=== PATIENT | female | born 1965 | race Caucasian/White ===

== ENCOUNTER → 2019-12-12 15:42 | Outpatient (BNVA) | payer OTHER, SELFPAY | PROVIDERS: PCP Internal Medicine; Visit Provider Obstetrics & Gynecology | DX: D21.9 Benign neoplasm of connective and other soft tissue, unspecified (principal) | CPT/HCPCS: 99213; Q3014 ==

== ENCOUNTER 2019-12-20 09:19 | Outpatient (REF) | payer OTHER, SELFPAY ==
--- NOTE | 2019-12-20 | US_ITS ---
EXAMINATION: US COMPLETE ABDOMEN WITH LIVER ELASTOGRAPHY CLINICAL INFORMATION: Right upper quadrant pain. COMPARISON: None. TECHNIQUE: Real-time imaging of the abdominal viscera. Noninvasive ultrasound liver fibrosis assessment is performed using Denisa ElastPQ point quantification shear wave elastography (pSWE) with a 5 MHz transducer. Multiple elastography samples are obtained. FINDINGS: PANCREAS: The pancreas is normal size and shape. There are coarse echotexture throughout the pancreas. The tail is suboptimally visualized. ABDOMINAL AORTA: The proximal, middle, and distal aortic segments are normal in caliber. INFERIOR VENA CAVA: Visualized portions are normal. LIVER: The liver demonstrates normal size, contour and increased echogenicity. No focal lesion or intrahepatic biliary duct dilatation. The right lobe measures 17.9 cm in length. The left lobe measures 13.7 cm in length. There is normal hepatopedal flow seen in the portal vein on Doppler exam. Shear wave elastography provides a median stiffness of 1.15 m/s (reference: normal median stiffness is 0.81 - 1.22 m/s). The IQR/median stiffness to assess sampling precision is 0.22 (reference: optimal IQR/median stiffness is under 0.3). GALLBLADDER: The gallbladder is physiologically distended without evidence of sludge, polyps, wall thickening or pericholecystic fluid. There are small echogenic stones visualized without wall thickening. The gallbladder wall measures 0.3 cm. COMMON BILE DUCT: Normal in caliber measuring 0.6 cm in diameter. RIGHT KIDNEY: Normal. No hydronephrosis. No renal calculi or focal parenchymal lesions. The kidney measures 11.8 cm in maximum dimension. LEFT KIDNEY: Normal. No hydronephrosis. No renal calculi or focal parenchymal lesions. The kidney measures 11.6 cm in maximum dimension. SPLEEN: Normal. The spleen measures 10.8 cm in maximum dimension. FREE FLUID: None. US/US abdomen comp w elastography IMPRESSION: 1. Hepatic steatosis without focal lesion. 2. Gallstones without wall thickening. 3. Elastography: Liver elastography measurements are within normal (METAVIR Stage F0).
== END 2019-12-20 09:20 | disposition home or self-care (01) ==
LOC: HO.US 09:19
PROVIDERS: Visit Provider Physician Assistant
DX: R10.11 Right upper quadrant pain (principal)
CPT/HCPCS: 76705; 76981

== ENCOUNTER → 2020-01-03 16:11 | Outpatient (BNVA) | payer OTHER, SELFPAY | PROVIDERS: Visit Provider Physician Assistant | DX: K59.09 Other constipation (principal) | CPT/HCPCS: 99212; Q3014 ==

== ENCOUNTER 2020-06-17 14:02 | Outpatient (REF) | payer OTHER, SELFPAY ==
--- NOTE | ~2020-06-17 | US_ITS ---
EXAMINATION: US PELVIS COMPLETE US PELVIS TRANSVAGINAL CLINICAL INFORMATION: Fibroids. COMPARISON: None TECHNIQUE: Transabdominal and transvaginal imaging was performed. FINDINGS: The uterus is of normal size and echogenicity measuring 5.9 x 3.8 x 3.3 cm for a volume of 38.7 mL. Ovoid, heterogeneous myometrial foci, likely representing fibroids. These measure 1.3 cm in the fundus and 1.1 cm within the posterior body. The endometrium is not clearly seen. Nabothian cysts and calcifications noted within the cervix. Both ovaries are of normal size and echogenicity. The right measures 2 x 1.4 x 2 cm for a volume of 2.9 mL. The left measures 1.4 x 0.9 x 1.7 cm for a volume of 1.1 mL. There is no pelvic free fluid. US/US pelvic complete IMPRESSION: 1. Uterine fibroids measuring approximately 1.3 and 1.1 cm. Endometrium not clearly seen. 2. Sonographically unremarkable right and left ovary.
--- NOTE | ~2020-06-17 | US_ITS ---
EXAMINATION: US PELVIS COMPLETE US PELVIS TRANSVAGINAL CLINICAL INFORMATION: Fibroids. COMPARISON: None TECHNIQUE: Transabdominal and transvaginal imaging was performed. FINDINGS: The uterus is of normal size and echogenicity measuring 5.9 x 3.8 x 3.3 cm for a volume of 38.7 mL. Ovoid, heterogeneous myometrial foci, likely representing fibroids. These measure 1.3 cm in the fundus and 1.1 cm within the posterior body. The endometrium is not clearly seen. Nabothian cysts and calcifications noted within the cervix. Both ovaries are of normal size and echogenicity. The right measures 2 x 1.4 x 2 cm for a volume of 2.9 mL. The left measures 1.4 x 0.9 x 1.7 cm for a volume of 1.1 mL. There is no pelvic free fluid. US/US transvaginal IMPRESSION: 1. Uterine fibroids measuring approximately 1.3 and 1.1 cm. Endometrium not clearly seen. 2. Sonographically unremarkable right and left ovary.
== END 2020-06-17 14:03 | disposition home or self-care (01) ==
LOC: HO.HMGCX 14:02
PROVIDERS: Visit Provider Obstetrics & Gynecology
DX: D21.9 Benign neoplasm of connective and other soft tissue, unspecified (principal)
CPT/HCPCS: 76830; 76856

== ENCOUNTER → 2020-07-08 16:22 | Outpatient (BNVA) | payer OTHER, SELFPAY | PROVIDERS: Visit Provider Obstetrics & Gynecology ==

== ENCOUNTER 2020-08-19 11:25 | Outpatient (REF) | payer OTHER, SELFPAY ==
--- NOTE | ~2020-08-19 | US_ITS ---
EXAMINATION: US ABDOMEN COMPLETE CLINICAL INFORMATION: Right upper quadrant pain.. COMPARISON: None TECHNIQUE: Real-time imaging of the abdominal viscera. FINDINGS: PANCREAS: Normal. ABDOMINAL AORTA: The proximal, mid, and distal segments are normal in caliber. INFERIOR VENA CAVA: Visualized portions are normal. LIVER: Normal. The liver is normal in size. The liver contour is normal. Parenchymal echogenicity is normal. No focal hepatic lesion. There is no intrahepatic biliary duct dilatation seen. GALLBLADDER: There are gallstones in the gallbladder. The gallbladder is normal in size. The gallbladder wall is normal. COMMON BILE DUCT: Normal in caliber measuring 0.5 cm in diameter. RIGHT KIDNEY: Normal. No hydronephrosis. No renal calculi or focal parenchymal lesions. The kidney measures 11.7 cm in maximum dimension. LEFT KIDNEY: Normal. No hydronephrosis. No renal calculi or focal parenchymal lesions. The kidney measures 11.2 cm in maximum dimension. SPLEEN: Normal. The spleen measures 10.9 cm in maximum dimension. FREE FLUID: None. US/US abdomen complete IMPRESSION: Gallstones.
== END 2020-08-19 11:26 | disposition home or self-care (01) ==
LOC: HO.HMGCX 11:25
PROVIDERS: Visit Provider Family Medicine
DX: R30.0 Dysuria (principal); R19.01 Right upper quadrant abdominal swelling, mass and lump
CPT/HCPCS: 76700

== ENCOUNTER 2021-02-17 15:20 | Outpatient (REF) | payer OTHER, SELFPAY ==
--- NOTE | ~2021-02-17 | US_ITS ---
EXAMINATION: US PELVIS CLINICAL INFORMATION: Pelvic and perineal pain COMPARISON: Pelvic ultrasound on 06/17/2020 TECHNIQUE: Ultrasound of the pelvis is performed using both transabdominal and transvaginal transducers along with Doppler. Transvaginal imaging is performed due to inadequate visualization transabdominally. FINDINGS: Uterus: The uterus is anteverted and measures 6.9 x 3.3 x 2.9 cm. The endometrium is not well evaluated. The uterus is smooth in contour and has heterogeneous echogenicity. 2 small fibroids less than 2 cm. Adnexa: Both ovaries are visualized. There is normal color flow to the adnexa. There is no ovarian torsion. There is no pelvic ascites or fluid collection. Right ovary measures 2.0 x 1.3 x 2.0 cm. Left ovary measures 2.1 x 1.1 x 1.6 cm. US/US pelvic and transvaginal IMPRESSION: 1. Small fibroids. 2. Heterogeneous echotexture of the uterus suggests adenomyosis. 3. Endometrium not well visualized.
== END 2021-02-17 15:21 | disposition home or self-care (01) ==
LOC: HO.HMGCX 15:20
PROVIDERS: PCP Internal Medicine; Visit Provider Advanced Practice Midwife
DX: R10.2 Pelvic and perineal pain (principal); D25.9 Leiomyoma of uterus, unspecified
CPT/HCPCS: 76830; 76856

== ENCOUNTER → 2021-02-23 13:10 | Outpatient (BNVA) | payer OTHER, SELFPAY | PROVIDERS: PCP Internal Medicine; Visit Provider Obstetrics & Gynecology ==

== ENCOUNTER 2021-05-11 13:09 | Outpatient (REF) | payer OTHER, SELFPAY | END 2021-05-11 13:10 | disposition home or self-care (01) | LOC: HO.LAB 13:09 | PROVIDERS: PCP Internal Medicine; Visit Provider Obstetrics & Gynecology | DX: A63.0 Anogenital (venereal) warts (principal); B97.7 Papillomavirus as the cause of diseases classified elsewhere | CPT/HCPCS: 57454; 88305; 88342; 88360 ==

== ENCOUNTER → 2021-05-25 15:50 | Outpatient (BNVA) | payer OTHER, SELFPAY | PROVIDERS: PCP Internal Medicine; Visit Provider Obstetrics & Gynecology | DX: N87.0 Mild cervical dysplasia (principal) | CPT/HCPCS: Q3014 ==

== ENCOUNTER 2022-06-17 14:02 | Outpatient (REF) | payer OTHER, SELFPAY ==
[2022-06-24 04:44] LABS: HPV mRNA E6/E7 rflx Not Detected (Not Detected)
== END 2022-06-17 14:03 | disposition home or self-care (01) ==
LOC: HO.LNP 14:02
PROVIDERS: PCP Internal Medicine; Visit Provider Obstetrics & Gynecology
DX: Z01.419 Encounter for gynecological examination (general) (routine) without abnormal findings (principal)
CPT/HCPCS: 87624; 88142